=== PATIENT | female | born 1945 | race Caucasian/White ===

== ENCOUNTER 2017-10-04 12:44 | Emergency (ER) | payer MEDICARE, BC ==
--- NOTE | 2017-10-04 13:28 | RAD ---
LEFT FOREARM 2 VIEWS: Date: 10/04/17 HISTORY: Fall, left wrist pain. FINDINGS/IMPRESSION: There is an impacted fracture involving the left distal radius. An avulsion fracture of the ulnar sty loid is present. POS: [facility]
--- NOTE | 2017-10-04 13:31 | RAD ---
PA AND LATERAL VIEWS OF CHEST: Date: 10/04/17 HISTORY: Injury. Chest pain. FINDINGS: The heart size is normal. The lungs are expanded without lobar consolidation, pneumothoraces, or pleu ral effusions. No degenerative changes in the spine. IMPRESSION: No radiographic evidence of acute cardiopulmonary process. POS: [facility]
--- NOTE | 2017-10-04 13:53 | RAD ---
THREE VIEWS LEFT WRIST: History: Trauma, left wrist pain. The patient had previous injury 7-16. FINDINGS: Three views of the left wrist demonstrates a Colles' fracture in the distal left radius. There is mil d posterior angulation of the distal fracture fragment. A small avulsion fracture also seen in the ul gallito styloid. IMPRESSION: Distal left radial fracture and tiny avulsion fracture involving the distal left ulna. POS: [facility]
--- NOTE | 2017-10-04 13:54 | RAD ---
THREE VIEWS LEFT HAND: History: Patient with left wrist injury three weeks ago. FINDINGS: AP, lateral, and oblique views of the left hand demonstrates an acute fracture in the distal left rad ius as well as a small ulnar styloid fracture. 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 No other acute abnormality s een. IMPRESSION: Distal left radial and ulnar fractures. POS: [facility]
--- NOTE | 2017-10-04 14:00 | RAD ---
FOUR VIEWS LEFT ELBOW: History: Fall on 09-12 with continued arm pain. FINDINGS: AP, lateral, and both oblique views of the left elbow demonstrates no evidence of left elbow fracture s, subluxation, or bony lesions. IMPRESSION: Normal four views left elbow. POS: [facility]
--- NOTE | 2017-10-04 15:30 | CT ---
CT CERVICAL SPINE WITHOUT CONTRAST: Date: 10/04/17 HISTORY: Pain. Injury. COMPARISON: None. TECHNIQUE: CT cervical spine is performed without contrast. Reformatted images are submitted for interpretation. FINDINGS: There is no craniocervical dissociation. Lateral masses of C1 and C2 articulate appropriately. Approp riate articulation of the facets. Straightening of normal cervical lordosis is felt to be due to constantine ent position, muscle spasm, or cervical collar. There is no prevertebral soft tissue swelling. There are varying degrees of central canal stenosis an d foraminal narrowing on the basis of degenerative change. Soft tissue neck structures are unremarkable. Upper mediastinum and lung apices are unremarkable. Cervical spine vertebral body height is maintained. There is no cervical spine fracture. IMPRESSION: 1. No cervical spine fracture. 2. Straightening of normal cervical lordosis as described above. If there is concern for ligamentous injury, consider MRI. POS: [facility]
== END 2017-10-04 15:40 | disposition home or self-care (01) ==
LOC: SCSER 12:44
DX: S52.532A Colles' fracture of left radius, initial encounter for closed fracture (principal); E78.5 Hyperlipidemia, unspecified; Z79.899 Other long term (current) drug therapy; W17.89XA Other fall from one level to another, initial encounter
CPT/HCPCS: 29125; 71046; 72125